=== PATIENT | female | born 1935 | race Caucasian/White ===

== ENCOUNTER 2020-10-21 21:41 | Inpatient (IN) | payer MEDICARE, BC ==
[2020-10-21 22:03] LABS: #Monocytes 1.2 10x3/uL (0.0-1.1); #Neutrophils 7.3 10x3/uL (1.5-8.4); %Basophils 0.3 % (0.0-2.0); %Eosinophils 0.2 % (0.0-6.0); %Lymphocytes 22.1 % (18.0-47.0); %Monocytes 10.7 % (0.0-10.0); %Neutrophils 65.7 % (40.0-75.0); Hemoglobin 9.2 g/dL (12.0-15.5); Mean Corpuscular HGB CONC 31.8 g/dL (32.0-36.0); Mean Corpuscular Hemoglobin 31.1 pg (27.0-33.0); Mean Corpuscular Volume 97.6 fl (81.6-98.3); Mean Platelet Volume 11.2 fl (7.4-10.4); Platelet Count 143 10x3/uL (150-450); RBC Distribution Width 15.6 % (11.5-14.5); Red Blood Cell (RBC) Count 2.96 10x6/uL (3.90-5.03)
[2020-10-21 22:18] LABS: ALT (SGPT) 37 U/L (8-55); AST (SGOT) 76 U/L (5-34); Albumin 3.1 g/dL (3.4-4.8); Alkaline Phosphatase 192 U/L (40-110); Anion Gap 14 mmol/L (10-20); BUN (Urea Nitrogen) 20 mg/dL (9.8-20.1); Bilirubin, Total 2.1 mg/dL (0.2-1.2); Calc. Creatinine Clearance 0 mL/min (70-130); Calcium 8.8 mg/dL (7.8-10.44); Carbon Dioxide 30 mmol/L (23-31); Chloride 100 mmol/L (98-107); Globulin 2.7 g/dL (2.4-3.5); Glucose 113 mg/dL (83-110); Potassium 3.8 mmol/L (3.5-5.1); Protein, Total 5.8 g/dL (5.8-8.1); Sodium 140 mmol/L (136-145)
[2020-10-21 22:38] LABS: CKMB 1.4 ng/mL (0-6.6)
[2020-10-21 22:51] LABS: Bilirubin 3+ (Negative); Blood, Urine 150 (Negative); Clarity Slightly Cloudy (Clear); Glucose, Urine (Dipstick) 50 mg/dL (Negative); Ketone, Urine 5 mg/dL (Negative); Leukocyte 100 (Negative); Nitrite Negative (Negative); Protein, Urine (Dipstick) 100 mg/dl (Neg-Trace); Urobilinogen Normal mg/dL (Less than 2)
[2020-10-21 22:59] LABS: RBC/HPF 0-3 HPF (0-3)
[2020-10-21 23:00] LABS: Bacteria/HPF Rare-Few HPF (None Seen); Renal Epithelial 0-3 HPF (None Seen); Transitional Epithelial 0-3 HPF (None Seen); WBC/HPF 0-3 HPF (0-3)
[2020-10-22] MEDS ORDERED: Guaifenesin DM 100-10/5 ML UDCUP PO PRN (00:12)
[2020-10-22] MEDS ORDERED: Dextrose 5% in Water 1,000 ML IV PRN (00:12)
[2020-10-22] MEDS ORDERED: Senokot S 8.6-50 MG TAB PO PRN (00:12)
[2020-10-22] MEDS ORDERED: Acetaminophen 325 MG TAB PO PRN (00:12)
[2020-10-22] MEDS ORDERED: Calcium Carbonate 500 MG ChewTAB PO PRN (00:12)
[2020-10-22] MEDS ORDERED: Dextrose 50% Abboject 50 ML SYRINGE SLOW IVP PRN (00:12)
[2020-10-22] MEDS ORDERED: HumaLOG 300 UNITS/3 ML VIAL SC PRN (00:12)
[2020-10-22] MEDS ORDERED: Albuterol Sulfate 2.5 mg/3 ml Neb NEB PRN (00:27)
[2020-10-22 01:14] VITALS: BMI 41.6
[2020-10-22] MEDS ORDERED: Furosemide 40 MG/4 ML VIAL SLOW IVP SCH (01:30)
[2020-10-22] MEDS ORDERED: Nitroglycerin 2% Ointment 1 INCH/1 GM Packet TOP SCH (01:30)
[2020-10-22] MEDS ORDERED: Furosemide 20 MG/2 ML VIAL SLOW IVP SCH (01:45)
[2020-10-22 06:01] LABS: #Monocytes 0.7 10x3/uL (0.0-1.1); #Neutrophils 5.3 10x3/uL (1.5-8.4); %Basophils 0.1 % (0.0-2.0); %Eosinophils 0.3 % (0.0-6.0); %Lymphocytes 20.3 % (18.0-47.0); %Neutrophils 69.6 % (40.0-75.0); Mean Corpuscular HGB CONC 31.6 g/dL (32.0-36.0); Mean Corpuscular Hemoglobin 31.7 pg (27.0-33.0); Mean Corpuscular Volume 100.4 fl (81.6-98.3); Mean Platelet Volume 11.3 fl (7.4-10.4); Platelet Count 122 10x3/uL (150-450); RBC Distribution Width 15.6 % (11.5-14.5); Red Blood Cell (RBC) Count 2.52 10x6/uL (3.90-5.03); White Blood Cell (WBC) Count 7.6 10x3/uL (3.5-10.5)
[2020-10-22 06:03] LABS: Anion Gap 16 mmol/L (10-20); BUN (Urea Nitrogen) 23 mg/dL (9.8-20.1); Calc. Creatinine Clearance 23 mL/min (70-130); Calcium 8.5 mg/dL (7.8-10.44); Carbon Dioxide 27 mmol/L (23-31); Chloride 101 mmol/L (98-107); Glucose 130 mg/dL (83-110); Potassium 3.7 mmol/L (3.5-5.1); Sodium 140 mmol/L (136-145)
[2020-10-22 06:22] LABS: CKMB 1.1 ng/mL (0-6.6)
[2020-10-22] MEDS ORDERED: Carvedilol 6.25 MG TAB PO SCH (08:00)
[2020-10-22] MEDS: Amiodarone 200 MG TAB PO SCH (08:08)
[2020-10-22] MEDS ORDERED: Fenofibrate Nanocrystallized 145 MG TAB PO SCH (09:00)
[2020-10-22 09:33] LABS: Hep B Surf Ag Non-Reactive S/CO (NonReactive)
[2020-10-22 09:36] LABS: HBSAg Index 0.14 S/CO (0-0.99)
[2020-10-22] MEDS: Cyanocobalamin (Vitamin B-12) 1,000 MCG TAB PO SCH (11:04)
[2020-10-22] MEDS: Cholecalciferol 1,000 UNITS (25 MCG) TAB PO SCH (11:06)
[2020-10-22] MEDS: Dronabinol 2.5 MG CAP PO SCH ×2 (11:07→15:36)
[2020-10-22] MEDS: Clopidogrel Bisulfate 75 MG TAB PO SCH (11:07)
[2020-10-22] MEDS: Aspirin 81 mg Enteric Coated Tablet PO SCH (11:07)
[2020-10-22] MEDS: Heparin 5,000 UNITS/ML VIAL SC SCH ×3 (11:07→21:50)
[2020-10-22] MEDS: Furosemide 40 MG/4 ML VIAL SLOW IVP SCH (11:08)
[2020-10-22] MEDS ORDERED: EPOETIN ALFA-EPBX (ESRD) 10,000 UNIT/ML VIAL SC SCH (12:00)
[2020-10-22 14:48] LABS: HBSAB Concentration Less than 8.00 mIU/mL; Hep B Core Total Ab Non-Reactive (NonReactive); Hep B Core Total Index 0.22 S/CO (0-0.79); Hep B Surf AB Non-Reactive (NonReactive); Hep C IgG Ab Non-Reactive (NonReactive); Hep C Index 0.16 S/CO (0-0.79)
[2020-10-22 16:21] LABS: SARS-CoV-2 PCR by NAA Not Detected (NotDetected)
[2020-10-22] MEDS: Carvedilol 3.125 MG TAB PO SCH (18:06)
[2020-10-22] MEDS: Midodrine HCl 2.5 MG TAB PO PRN (18:09)
[2020-10-22] MEDS: Cholestyramine/Aspartame 4 gm Packet PO SCH (21:50)
[2020-10-22] MEDS: Atorvastatin Calcium 40 MG TAB PO SCH (21:51)
[2020-10-23 06:32] LABS: #Eosinphils 0.1 10x3/uL (0.0-0.5); #Monocytes 0.7 10x3/uL (0.0-1.1); #Neutrophils 4.9 10x3/uL (1.5-8.4); %Basophils 0.4 % (0.0-2.0); %Eosinophils 0.7 % (0.0-6.0); %Lymphocytes 20.9 % (18.0-47.0); %Monocytes 9.9 % (0.0-10.0); %Neutrophils 67.1 % (40.0-75.0); Mean Corpuscular HGB CONC 31.3 g/dL (32.0-36.0); Mean Corpuscular Hemoglobin 30.9 pg (27.0-33.0); Mean Corpuscular Volume 98.8 fl (81.6-98.3); Platelet Count 141 10x3/uL (150-450); Red Blood Cell (RBC) Count 2.59 10x6/uL (3.90-5.03); White Blood Cell (WBC) Count 7.2 10x3/uL (3.5-10.5)
[2020-10-23 06:46] LABS: Anion Gap 18 mmol/L (10-20); BUN (Urea Nitrogen) 24 mg/dL (9.8-20.1); Calc. Creatinine Clearance 22 mL/min (70-130); Calcium 8.5 mg/dL (7.8-10.44); Carbon Dioxide 25 mmol/L (23-31); Chloride 102 mmol/L (98-107); Glucose 82 mg/dL (83-110); Magnesium 1.9 mg/dL (1.6-2.6); Sodium 141 mmol/L (136-145)
[2020-10-23] MEDS: Amiodarone 200 MG TAB PO SCH (14:09)
[2020-10-23] MEDS: Aspirin 81 mg Enteric Coated Tablet PO SCH (14:09)
[2020-10-23] MEDS: Carvedilol 3.125 MG TAB PO SCH ×2 (14:09→16:42)
[2020-10-23] MEDS: Heparin 5,000 UNITS/ML VIAL SC SCH ×3 (14:09→21:09)
[2020-10-23] MEDS: Clopidogrel Bisulfate 75 MG TAB PO SCH (14:09)
[2020-10-23] MEDS: Furosemide 40 MG/4 ML VIAL SLOW IVP SCH (14:09)
[2020-10-23] MEDS: Cyanocobalamin (Vitamin B-12) 1,000 MCG TAB PO SCH (14:09)
[2020-10-23] MEDS: Dronabinol 2.5 MG CAP PO SCH ×2 (14:09→16:41)
[2020-10-23] MEDS: Cholecalciferol 1,000 UNITS (25 MCG) TAB PO SCH (14:09)
[2020-10-23] MEDS: Cholestyramine/Aspartame 4 gm Packet PO SCH (21:08)
[2020-10-23] MEDS: Atorvastatin Calcium 40 MG TAB PO SCH (21:09)
[2020-10-24] MEDS: Dronabinol 2.5 MG CAP PO SCH ×2 (06:46→17:41)
[2020-10-24 07:29] LABS: #Eosinphils 0.1 10x3/uL (0.0-0.5); #Monocytes 0.9 10x3/uL (0.0-1.1); #Neutrophils 5.1 10x3/uL (1.5-8.4); %Basophils 0.4 % (0.0-2.0); %Eosinophils 1.7 % (0.0-6.0); %Lymphocytes 22.7 % (18.0-47.0); %Monocytes 10.7 % (0.0-10.0); Hemoglobin 8.4 g/dL (12.0-15.5); Mean Corpuscular HGB CONC 31.8 g/dL (32.0-36.0); Mean Corpuscular Hemoglobin 31.1 pg (27.0-33.0); Mean Corpuscular Volume 97.8 fl (81.6-98.3); Mean Platelet Volume 11.2 fl (7.4-10.4); Platelet Count 169 10x3/uL (150-450); RBC Distribution Width 16.2 % (11.5-14.5); White Blood Cell (WBC) Count 8.1 10x3/uL (3.5-10.5)
[2020-10-24 07:59] LABS: Anion Gap 18 mmol/L (10-20); BUN (Urea Nitrogen) 16 mg/dL (9.8-20.1); Calc. Creatinine Clearance 27 mL/min (70-130); Calcium 8.4 mg/dL (7.8-10.44); Carbon Dioxide 23 mmol/L (23-31); Chloride 102 mmol/L (98-107); Glucose 90 mg/dL (83-110); Magnesium 1.9 mg/dL (1.6-2.6); Potassium 4.2 mmol/L (3.5-5.1); Sodium 139 mmol/L (136-145)
[2020-10-24] MEDS: Carvedilol 3.125 MG TAB PO SCH ×3 (10:09→17:41)
[2020-10-24] MEDS: Clopidogrel Bisulfate 75 MG TAB PO SCH (10:09)
[2020-10-24] MEDS: Cholecalciferol 1,000 UNITS (25 MCG) TAB PO SCH (10:09)
[2020-10-24] MEDS: Amiodarone 200 MG TAB PO SCH (10:09)
[2020-10-24] MEDS: Furosemide 40 MG/4 ML VIAL SLOW IVP SCH (10:10)
[2020-10-24] MEDS: Heparin 5,000 UNITS/ML VIAL SC SCH ×3 (10:10→23:01)
[2020-10-24] MEDS: Aspirin 81 mg Enteric Coated Tablet PO SCH (10:11)
[2020-10-24] MEDS: Cyanocobalamin (Vitamin B-12) 1,000 MCG TAB PO SCH (10:21)
[2020-10-24] MEDS: Midodrine HCl 2.5 MG TAB PO PRN (10:29)
[2020-10-24] MEDS ORDERED: Heparin 5,000 UNITS/ML VIAL ONE (17:33)
[2020-10-24] MEDS: Atorvastatin Calcium 40 MG TAB PO SCH (23:01)
[2020-10-24] MEDS: Cholestyramine/Aspartame 4 gm Packet PO SCH (23:01)
[2020-10-25] MEDS: Dronabinol 2.5 MG CAP PO SCH ×2 (06:34→17:52)
[2020-10-25 06:49] LABS: #Eosinphils 0.1 10x3/uL (0.0-0.5); #Monocytes 0.8 10x3/uL (0.0-1.1); %Basophils 0.4 % (0.0-2.0); %Eosinophils 1.3 % (0.0-6.0); %Lymphocytes 23.6 % (18.0-47.0); %Monocytes 10.2 % (0.0-10.0); %Neutrophils 63.4 % (40.0-75.0); Hemoglobin 8.8 g/dL (12.0-15.5); Mean Corpuscular HGB CONC 31.7 g/dL (32.0-36.0); Mean Corpuscular Hemoglobin 31.1 pg (27.0-33.0); Mean Corpuscular Volume 98.2 fl (81.6-98.3); Mean Platelet Volume 10.9 fl (7.4-10.4); Platelet Count 177 10x3/uL (150-450); RBC Distribution Width 16.3 % (11.5-14.5); Red Blood Cell (RBC) Count 2.83 10x6/uL (3.90-5.03); White Blood Cell (WBC) Count 7.9 10x3/uL (3.5-10.5)
[2020-10-25 07:03] LABS: Anion Gap 18 mmol/L (10-20); BUN (Urea Nitrogen) 22 mg/dL (9.8-20.1); Calc. Creatinine Clearance 21 mL/min (70-130); Calcium 8.4 mg/dL (7.8-10.44); Carbon Dioxide 22 mmol/L (23-31); Chloride 102 mmol/L (98-107); Glucose 80 mg/dL (83-110); Potassium 4.3 mmol/L (3.5-5.1); Sodium 138 mmol/L (136-145)
[2020-10-25] MEDS: Carvedilol 3.125 MG TAB PO SCH ×2 (08:43→17:52)
[2020-10-25] MEDS: Cyanocobalamin (Vitamin B-12) 1,000 MCG TAB PO SCH (10:26)
[2020-10-25] MEDS: Aspirin 81 mg Enteric Coated Tablet PO SCH (10:26)
[2020-10-25] MEDS: Amiodarone 200 MG TAB PO SCH (10:26)
[2020-10-25] MEDS: Cholecalciferol 1,000 UNITS (25 MCG) TAB PO SCH (10:28)
[2020-10-25] MEDS: Clopidogrel Bisulfate 75 MG TAB PO SCH (10:28)
[2020-10-25] MEDS: Heparin 5,000 UNITS/ML VIAL SC SCH ×3 (10:28→20:59)
[2020-10-25] MEDS: Furosemide 40 MG/4 ML VIAL SLOW IVP SCH (10:30)
[2020-10-25] MEDS ORDERED: Carvedilol 3.125 MG TAB PO SCH (11:30)
[2020-10-25] MEDS: Midodrine HCl 2.5 MG TAB PO SCH ×2 (14:42→20:59)
[2020-10-25] MEDS ORDERED: Ondansetron PF 4 MG/2 ML Vial IVP PRN (18:14)
[2020-10-25] MEDS ORDERED: Midodrine HCl 2.5 MG TAB PO SCH (19:00)
[2020-10-25] MEDS: Cholestyramine/Aspartame 4 gm Packet PO SCH (20:59)
[2020-10-25] MEDS: Atorvastatin Calcium 40 MG TAB PO SCH (20:59)
[2020-10-26 05:21] LABS: Anion Gap 16 mmol/L (10-20); BUN (Urea Nitrogen) 16 mg/dL (9.8-20.1); Calc. Creatinine Clearance 27 mL/min (70-130); Calcium 8.3 mg/dL (7.8-10.44); Carbon Dioxide 23 mmol/L (23-31); Chloride 100 mmol/L (98-107); Glucose 114 mg/dL (83-110); Potassium 3.5 mmol/L (3.5-5.1); Sodium 135 mmol/L (136-145)
[2020-10-26 05:26] LABS: #Eosinphils 0.1 10x3/uL (0.0-0.5); #Monocytes 0.8 10x3/uL (0.0-1.1); #Neutrophils 6.3 10x3/uL (1.5-8.4); %Basophils 0.2 % (0.0-2.0); %Eosinophils 0.6 % (0.0-6.0); %Lymphocytes 19.6 % (18.0-47.0); %Monocytes 9.1 % (0.0-10.0); %Neutrophils 69.8 % (40.0-75.0); Hemoglobin 9.1 g/dL (12.0-15.5); Mean Corpuscular HGB CONC 31.8 g/dL (32.0-36.0); Mean Corpuscular Hemoglobin 31.4 pg (27.0-33.0); Mean Corpuscular Volume 98.6 fl (81.6-98.3); Mean Platelet Volume 10.4 fl (7.4-10.4); Platelet Count 177 10x3/uL (150-450); RBC Distribution Width 16.8 % (11.5-14.5)
[2020-10-26] MEDS: Furosemide 40 MG/4 ML VIAL SLOW IVP SCH (08:29)
[2020-10-26] MEDS: Carvedilol 3.125 MG TAB PO SCH ×2 (08:29→16:48)
[2020-10-26] MEDS ORDERED: Furosemide 40 MG TAB PO SCH (09:30)
[2020-10-26] MEDS ORDERED: Midodrine HCl 2.5 MG TAB PO SCH (09:30)
[2020-10-26] MEDS: Amiodarone 200 MG TAB PO SCH (10:05)
[2020-10-26] MEDS: Clopidogrel Bisulfate 75 MG TAB PO SCH (10:07)
[2020-10-26] MEDS: Dronabinol 2.5 MG CAP PO SCH ×2 (10:09→16:20)
[2020-10-26] MEDS: Cyanocobalamin (Vitamin B-12) 1,000 MCG TAB PO SCH (10:18)
[2020-10-26] MEDS: Aspirin 81 mg Enteric Coated Tablet PO SCH (10:19)
[2020-10-26] MEDS: Cholecalciferol 1,000 UNITS (25 MCG) TAB PO SCH (10:20)
[2020-10-26] MEDS: Heparin 5,000 UNITS/ML VIAL SC SCH ×3 (10:24→20:20)
[2020-10-26] MEDS: Midodrine HCl 2.5 MG TAB PO SCH ×2 (16:20→20:25)
[2020-10-26] MEDS: Atorvastatin Calcium 40 MG TAB PO SCH (20:20)
[2020-10-26] MEDS: Cholestyramine/Aspartame 4 gm Packet PO SCH (20:25)
[2020-10-27] MEDS ORDERED: Furosemide 40 MG TAB PO SCH (07:30)
[2020-10-27] MEDS: Dronabinol 2.5 MG CAP PO SCH ×2 (08:59→20:32)
[2020-10-27] MEDS: Cyanocobalamin (Vitamin B-12) 1,000 MCG TAB PO SCH (09:00)
[2020-10-27] MEDS: Aspirin 81 mg Enteric Coated Tablet PO SCH (09:02)
[2020-10-27] MEDS: Clopidogrel Bisulfate 75 MG TAB PO SCH (09:03)
[2020-10-27] MEDS: Midodrine HCl 2.5 MG TAB PO SCH ×2 (09:03→16:28)
[2020-10-27] MEDS: Cholecalciferol 1,000 UNITS (25 MCG) TAB PO SCH (09:03)
[2020-10-27] MEDS: Amiodarone 200 MG TAB PO SCH (09:04)
[2020-10-27] MEDS: Carvedilol 3.125 MG TAB PO SCH (09:04)
[2020-10-27] MEDS: Heparin 5,000 UNITS/ML VIAL SC SCH ×2 (09:05→16:27)
[2020-10-27 20:25] VITALS: BP 115/59; TEMP 98.3
== END 2020-10-27 16:51 | disposition home or self-care (01) | DRG 291 ==
LOC: CSHERS 21:41 → CSHTELE 10-22 01:09
PROVIDERS: ADMIT Student in an Organized Health Care Education/Training Program; ATTEND Internal Medicine
PROC: 5A1D70Z Performance of Urinary Filtration, Intermittent, Less than 6 Hours Per Day (ICD-10-PCS; principal; 2020-10-22)
DX: I13.2 Hypertensive heart and chronic kidney disease with heart failure and with stage 5 chronic kidney disease, or end stage renal disease (principal); I50.43 Acute on chronic combined systolic (congestive) and diastolic (congestive) heart failure; N18.6 End stage renal disease; G92 Toxic encephalopathy; E11.22 Type 2 diabetes mellitus with diabetic chronic kidney disease; Z20.822 Contact with and (suspected) exposure to COVID-19; Z66 Do not resuscitate; E11.65 Type 2 diabetes mellitus with hyperglycemia; K21.9 Gastro-esophageal reflux disease without esophagitis; D63.1 Anemia in chronic kidney disease; R62.7 Adult failure to thrive; G47.33 Obstructive sleep apnea (adult) (pediatric); I95.89 Other hypotension; E80.6 Other disorders of bilirubin metabolism; E78.2 Mixed hyperlipidemia; I25.5 Ischemic cardiomyopathy; L89.152 Pressure ulcer of sacral region, stage 2; R77.8 Other specified abnormalities of plasma proteins; R74.01 Elevation of levels of liver transaminase levels; R53.81 Other malaise; Z95.1 Presence of aortocoronary bypass graft; Z90.49 Acquired absence of other specified parts of digestive tract; Z99.2 Dependence on renal dialysis; Z88.5 Allergy status to narcotic agent; Z88.0 Allergy status to penicillin; Z79.01 Long term (current) use of anticoagulants; Z79.82 Long term (current) use of aspirin; Z79.899 Other long term (current) drug therapy; Z98.42 Cataract extraction status, left eye; Z98.41 Cataract extraction status, right eye; Z95.5 Presence of coronary angioplasty implant and graft; Z95.810 Presence of automatic (implantable) cardiac defibrillator; Z90.710 Acquired absence of both cervix and uterus; Z90.89 Acquired absence of other organs
CPT/HCPCS: 36415; 36416; 51701; 71045; 74176; 80048; 80053; 81003; 81015; 82553; 83735; 83880; 84443; 84484; 85025; 86704; 86706; 86803; 87340; 87635; 90935; 93005; 93306; 94760; G0257; J1644; J1940; Q0167; Q5105; U0003; U0005